=== PATIENT | female | born 1980 | race Caucasian/White ===

== ENCOUNTER 2017-08-23 08:56 | Inpatient (IN) | payer OTHER ==
--- NOTE | 2017-08-23 09:48 | HP ---
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 hx LEEP, last Pap 09/16 normal, HPV negative hx eating disorder hx migraine current resolving ankle sprain Pertinent Past Surgical History: None Pertinent Family History: Non-Contributory - Antepartal Records Antepartal Records: Reviewed, Complicated by: - age 36 at delivery, NIPT WNL Review of Systems Constitutional: Uncomfortable CV Complaint: No Respiratory: Shortness of Breath: No Genitourinary: No Leaking Fluid Musculoskeletal: Contractions Neurological: No Headache, No Visual Changes Movement: Normal - Comments Nausea, soft stool Exam Allergies/Adverse Reactions: Allergies MS Latex [Latex] Allergy (Mild, Verified 06/04/14 05:45) Rash 110/68 98.5-100-20 - Measurements Height: 5 ft 5 in Weight: 140 lb Weight in lbs: 140 Body Mass Index (BMI): 23.3 Pre- Weight: 117 lb Weight Gained This : 23 lbs and 0 ozs - Exam Breast: - - soft, no masses Extremities: No Edema Heart: Normal Rhythm/Heart Sounds HEENT: No Significant Findings Lungs: Clear Bilaterally Reflexes: DTR 2+ Thyroid: No Thyromegaly Other Exam Findings: no HSV lesions - Ultrasound/Biophysical Profile Ultrasound Status: Not Done Targeted Exam Findings See L&D Outpatient Visit Provider Note for Findings: N/A Estimated Weight: 7 lbs Cervical Exam: Complete - ? Effacement: 100% Station: +1 Presenting Part: Vertex Membrane Status: Bulging EFM Findings - External Monitor Findings Baseline Heart Rate: 140 External Monitor Findings: No Pattern of Variable or Late Decelerations, Variability Moderate Contractions: Strong, 45-90 Seconds Contraction Frequency: 2-3 minutes Assessment/Plan - Reason for Visit Reason for Visit: labor - Plan Plan: Active Labor Plan Comment: ? fully dilated, no urge to push, will admit, anticipate vaginal delivery Options reviewed, AROM vs tub vs ambulation Will get in tub for now - Date/Time of Admission Date of Admission: 08/23/17 Time of Admission: 09:15
[2017-08-23] MEDS ORDERED: Witch Hazel PAD* JAR TOPICAL PRN (12:43)
[2017-08-23] MEDS ORDERED: Dibucaine 1% 28.35 GM TUBE PR PRN (12:43)
[2017-08-23] MEDS ORDERED: OXYTOCIN* 10 UNITS/ML 1 ML VIAL IM ONE (12:43)
[2017-08-23] MEDS ORDERED: Acetaminophen TAB* 325 MG PO PRN (12:43)
[2017-08-23] MEDS ORDERED: Glycerin ADULT SUPP PR PRN (12:43)
[2017-08-23] MEDS: Docusate CAP* 100 MG PO SCH ×2 (13:27→20:08)
[2017-08-23] MEDS: Ibuprofen TAB* 600 MG PO PRN ×2 (13:27→19:41)
[2017-08-23] MEDS ORDERED: Calcium Carbonate CHEW TAB* 500 MG (TUMS) PO PRN (17:30)
[2017-08-23] MEDS ORDERED: Calcium Carbonate CHEW TAB* 500 MG (TUMS) ONE (17:35)
[2017-08-23] MEDS ORDERED: OXYTOCIN* 10 UNITS/ML 1 ML VIAL ONE (18:47)
[2017-08-24 06:50] LABS: Hematocrit 30 % (35-47); Hemoglobin 9.9 g/dl (12.0-16.0); Mean Corpuscular HGB Conc 33 g/dl (31-36); Mean Corpuscular Hemoglobin 27 pg (27-31); Mean Corpuscular Volume 81 fL (80-97); Mean Platelet Volume 8.4 um3 (7.4-10.4); Platelet Count 272 10^3/ul (150-450); Red Blood Count 3.66 10^6/ul (4.0-5.4); Red Cell Distribution Width 15 % (10.5-15); White Blood Count 15.7 10^3/ul (3.5-10.8)
[2017-08-24] MEDS: Docusate CAP* 100 MG PO SCH ×2 (08:08→14:46)
[2017-08-24] MEDS: Ibuprofen TAB* 600 MG PO PRN ×2 (08:08→14:46)
[2017-08-24] MEDS ORDERED: Ferrous Gluconate TAB* 324 MG TAB PO SCH (09:00)
[2017-08-24 09:41] VITALS: BP 91/69
--- NOTE | 2017-08-24 15:43 | PTEDU ---
Patient Name: ALMA MARTINEZ ALMA MARTINEZ selected video: Never Ever Shake a Baby to view on 08/24/2017 at 3:42:39 PM [id number]
== END 2017-08-24 16:15 | disposition home or self-care (01) | DRG 775 ==
LOC: MCHOBOUT 08:56 → MCHOB 09:05
PROVIDERS: ADMIT Midwife; ATTEND Midwife
PROC: 10E0XZZ Delivery of Products of Conception, External Approach (ICD-10-PCS; principal; 2017-08-23)
PROC: 0HQ9XZZ Repair Perineum Skin, External Approach (ICD-10-PCS; 2017-08-23)
DX: O48.0 Post-term pregnancy (principal); O69.81X0 Labor and delivery complicated by cord around neck, without compression, not applicable or unspecified; O70.0 First degree perineal laceration during delivery; O90.81 Anemia of the puerperium; D64.9 Anemia, unspecified; Z3A.40 40 weeks gestation of pregnancy; Z37.0 Single live birth
CPT/HCPCS: 36415; 85027; A9270-GY; J2590

== ENCOUNTER 2019-03-07 19:17 | Emergency (ER) | payer OTHER ==
[2019-03-07] MEDS ORDERED: Lidocaine 1% MPF ** 5 ML VIAL INJ ONE (21:11)
--- NOTE | 2019-03-07 21:13 | ED ---
Lower Extremity - HPI Summary HPI Summary: 38 year old female presents with right toe injury today. States that she caught her toe on her couch. She has a deformity noted to the toe. [facility] and had x-ray that showed fracture dislocation. Area was not reduced. Has no medical conditions. States has no pain. No numbness or tingling. - History of Current Complaint Chief Complaint: EDExtremityLower Stated Complaint: TOE FRACTURE PER PT Time Seen by Provider: 03/07/19 21:02 Pain Intensity: 3 - Allergies/Home Medications Allergies/Adverse Reactions: Allergies Allergy/AdvReac Type Severity Reaction Status Date / Time latex Allergy Mild Rash Verified 08/23/17 17:39 PMH/Surg Hx/FS Hx/Imm Hx Endocrine/Hematology History: Denies: Hx Anticoagulant Therapy Respiratory History: Denies: Hx Asthma Psychiatric History: Reports: Other Psychiatric Issues/Disorders - hx eating disorder Infectious Disease History: Yes Infectious Disease History: Denies: Traveled Outside the [place] in Last 30 Days - Family History Known Family History: Positive: Non-Contributory - Social History Alcohol Use: None Substance Use Type: Reports: None Smoking Status (MU): Never Smoked Tobacco Review of Systems Negative: Fever Negative: Chest Pain Negative: Shortness Of Breath Positive: Myalgia - deformity to right little toe All Other Systems Reviewed And Are Negative: Yes Physical Exam Triage Information Reviewed: Yes Vital Signs On Initial Exam: Initial Vitals Temp Pulse Resp BP Pulse Ox 99.4 F 81 18 107/86 98 03/07/19 19:20 03/07/19 19:20 03/07/19 19:20 03/07/19 19:20 03/07/19 19:20 Vital Signs Reviewed: Yes Appearance: Positive: Well-Appearing Skin: Positive: Warm, Dry Head/Face: Positive: Normal Head/Face Inspection Eyes: Positive: Normal, Conjunctiva Clear ENT: Positive: Pharynx normal Respiratory/Lung Sounds: Positive: Clear to Auscultation, Breath Sounds Present Cardiovascular: Positive: Normal, RRR Musculoskeletal: Positive: Limited @ - right little toe, Other - deformity right little toe, good pulses, sensation grossly intact Neurological: Positive: Normal Psychiatric: Positive: Normal Procedures - Sedation Patient Received Moderate/Deep Sedation with Procedure: No - Joint Reduction Right Joint Reduction Site: other Specify Other Joint Reduced: right 5th proximal phlanax Conscious Sedation: No Reduction Attempts: 1 Post Joint Reduction Film: joint reduced Diagnostics - Vital Signs Vital Signs Temp Pulse Resp BP Pulse Ox 03/07/19 19:20 99.4 F 81 18 107/86 98 - Laboratory Lab Statement: Any lab studies that have been ordered have been reviewed, and results considered in the medical decision making process. Lower Extremity Course/Dx - Course Course Of Treatment: 38 year old female presents with right toe injury today. States that she caught her toe on her couch. She has a deformity noted to the toe. [facility] seen at [facility] and had x-ray that showed fracture dislocation. Area was not reduced. Has no medical conditions. States has no pain. No numbness or tingling. On exam deformity noted to left little toe. X-ray shows proximal phalanx fracture with dislocation. Performed a digital block and reduced fracture. ely taped area. Gave postop shoe. Follow-up with ortho or primary. Patient understands and agrees plan. - Diagnoses Differential Diagnosis/HQI/PQRI: Positive: Fracture (Closed), Sprain, Strain Provider Diagnoses: Fracture of proximal phalanx of lesser toe, Fracture/dislocation, finger, proximal/middle phalanx Discharge ED - Sign-Out/Discharge Documenting (check all that apply): Patient Departure - Discharge Plan Condition: Good Disposition: HOME Patient Education Materials: Toe Fracture (ED) Referrals: Maria G Edge MD [Primary Care Provider] - Padmini Wills MD [Medical Doctor] - Additional Instructions: Wear hard sole shoes ely tape toe Ice, elevate Take Tylenol or ibuprofen for pain every 6 hours as needed Follow up with primary or ortho Return to ED if develop or any new or worsening symptoms - Billing Disposition and Condition Condition: GOOD Disposition: Home
[2019-03-07 22:24] VITALS: BP 123/79
== END 2019-03-07 22:20 | disposition home or self-care (01) ==
LOC: ED 19:17
DX: S92.511A Displaced fracture of proximal phalanx of right lesser toe(s), initial encounter for closed fracture (principal); W23.1XXA Caught, crushed, jammed, or pinched between stationary objects, initial encounter; Y92.009 Unspecified place in unspecified non-institutional (private) residence as the place of occurrence of the external cause; Z91.040 Latex allergy status
CPT/HCPCS: 99282